=== PATIENT | male | born 1965 | race Two or more races ===

== ENCOUNTER 2016-09-12 13:51 | Emergency (ER) | payer OTHER ==
[2016-09-12 14:03] VITALS: BP 137/90
[2016-09-12] MEDS ORDERED: Proparacaine 0.5% Ophth Soln 15 ML Bottle EYEBOTH ONE (14:05)
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
== END 2016-09-12 15:25 | disposition home or self-care (01) ==
LOC: JD.ED 13:51
DX: S05.02XA Injury of conjunctiva and corneal abrasion without foreign body, left eye, initial encounter (principal); S05.01XA Injury of conjunctiva and corneal abrasion without foreign body, right eye, initial encounter; W37.8XXA Explosion and rupture of other pressurized tire, pipe or hose, initial encounter; Y92.69 Other specified industrial and construction area as the place of occurrence of the external cause; Y99.0 Civilian activity done for income or pay; F17.210 Nicotine dependence, cigarettes, uncomplicated; Z88.6 Allergy status to analgesic agent; Z98.890 Other specified postprocedural states
CPT/HCPCS: 65222; 99283; 99283-25